=== PATIENT | female | born 1995 | race Caucasian/White ===

== ENCOUNTER 2022-03-21 00:22 | Emergency (ER) | payer OTHER ==
[~2022-03-21] VITALS: Ht 167.6 cm; Wt 58.1 kg
[~2022-03-21 00:22] MED LIST: HYDACE5 PO; RXPROM25 PO
== END 2022-03-21 03:36 | disposition home or self-care (01) ==
LOC: ER 00:22
DX: R06.02 Shortness of breath (principal); J45.909 Unspecified asthma, uncomplicated; F41.9 Anxiety disorder, unspecified; Z91.013 Allergy to seafood; Z91.09 Other allergy status, other than to drugs and biological substances; Z73.3 Stress, not elsewhere classified
CPT/HCPCS: 99283-25

== ENCOUNTER → 2023-05-28 | Outpatient (CLI) | payer OTHER | LOC: LAB 10:42 → LAB SHORT 10:42 | PROVIDERS: Obstetrics & Gynecology | DX: Z01.419 Encounter for gynecological examination (general) (routine) without abnormal findings (principal) | CPT/HCPCS: G0123 ==

== ENCOUNTER 2024-12-17 07:01 | Day surgery (SDC) | payer OTHER ==
[~2024-12-17] VITALS: Ht 167.6 cm; Wt 70.3 kg
[~2024-12-17 07:01] MED LIST changes: +Lactated Ringer's 1,000 ML IV ONE; +ONDA4 PO
[2024-12-17] MEDS ORDERED: LevonorgestreL 1 EACH IUD VAG ONE (07:30)
[2024-12-17] MEDS ORDERED: Ativan1 MG PO (07:53)
[2024-12-17] MEDS ORDERED: Vitamin D1000 UNI1 PO (07:56)
[2024-12-17] MEDS ORDERED: Buspirone HCl15 MG PO (07:56)
[2024-12-17] MEDS ORDERED: DESV50 PO (07:57)
[2024-12-17] MEDS ORDERED: LAMO25 (07:58)
[2024-12-17] MEDS ORDERED: GABA300 PO (07:58)
[2024-12-17] MEDS ORDERED: propofoL 20 ML IV ONE (08:00)
[2024-12-17] MEDS ORDERED: LAMO25 PO (08:00)
[2024-12-17] MEDS ORDERED: FentaNYL Citrate 50 MCG/ML 2 ML Injection ONE ×2 (08:00→09:38)
[2024-12-17] MEDS ORDERED: DEPO-PROVE150 MG/1 M IM (08:01)
[2024-12-17] MEDS ORDERED: MIRT30 PO (08:02)
[2024-12-17] MEDS ORDERED: PANT40 PO (08:03)
[2024-12-17] MEDS ORDERED: Ketorolac Tromethamine 30mg Vial ONE ×2 (08:06→09:11)
[2024-12-17] MEDS ORDERED: Lactated Ringer's 1,000 ML IV ONE ×3 (08:21→10:54)
[2024-12-17] MEDS ORDERED: Midazolam HCl 1MG / ML 2ML Vial ONE (08:36)
--- NOTE | 2024-12-17 08:45 | NUR ---
12/17/24 0845 Breezy Jamil DURING IV INSERTION PT REPORTED FEELING LIGHT HEADED AND WAS PLACED IN TRENDELENBERG POSITION. PT THEN REPORTING NAUSEA AND WANTING TO VOMIT. PT HEAD ELEVATED AND SHE EXPERIENCE DRY HEAVES. THEN PT PASSED OUT AND APPEARED TO EXPERIENCE SOME POSTURING. PT WAKES WITH IN A FEW SECONDS WITH SKIN CLAMMY. PT LAID FLAT WITH COLD RAG ON HEAD. VITAL SIGNS STABLE. ANESTHESIA AWARE.
[2024-12-17] MEDS ORDERED: Silver Nitr/Potassium Nitrate 1 EA APPL ONE (08:55)
--- NOTE | 2024-12-17 08:56 | NUR ---
12/17/24 0856 Nilda Grant IUD MARIELLEETTA PLACED BY DR ANTUNEZ LOT [id number] EXP 05/2029
[2024-12-17] MEDS ORDERED: Ondansetron HCl 2 MG / ML 2ML Vial ONE ×2 (09:01→09:11)
[2024-12-17] MEDS ORDERED: Dexamethasone Sod Phos 10 MG/ML 1ML VIAL ONE (09:01)
--- NOTE | 2024-12-17 09:50 | NUR ---
12/17/24 0950 Kay Portillo PT REPORTS NAUSEA, STATES "I'VE BEEN NAUSEOUS FOR TWO WEEKS OVER THIS" PT ANXIOUS, BUT COOPERATIVE.
[2024-12-17] MEDS ORDERED: Prochlorperazine Edisylate 10 mg Vial IV PRN (10:20)
[2024-12-17] MEDS ORDERED: Albuterol 2.5 MG/3 ML VIAL INH PRN (10:20)
[2024-12-17] MEDS ORDERED: Ondansetron HCl 2 MG / ML 2ML Vial IV PRN (10:20)
[2024-12-17] MEDS ORDERED: Acetaminophen 500 MG Tab ONE (10:26)
[2024-12-17] MEDS ORDERED: OxyCODONE HCL 5 MG TAB ONE (10:26)
[2024-12-17 11:06] VITALS: BP 109/78
== END 2024-12-17 11:38 | disposition home or self-care (01) ==
LOC: ORSCSDS 07:01
PROVIDERS: Obstetrics & Gynecology
PROC: 0UH97HZ Insertion of Contraceptive Device into Uterus, Via Natural or Artificial Opening (ICD-10-PCS; principal; 2024-12-17 08:30)
DX: Z30.430 Encounter for insertion of intrauterine contraceptive device (principal); F41.9 Anxiety disorder, unspecified; F43.10 Post-traumatic stress disorder, unspecified; F32.A Depression, unspecified; Z79.899 Other long term (current) drug therapy
CPT/HCPCS: A9270; J0780; J1100; J1885; J2250; J2405; J2704; J3010; J7120; J7297